=== PATIENT | female | born 1965 | race Caucasian/White ===

== ENCOUNTER 2018-07-08 21:50 | Emergency (ER) | payer MEDICAID ==
[2018-07-08 21:50] VITALS: BMI 20.1
[2018-07-08 22:01] VITALS: BP 119/66; PULSE 91; RESP 16; TEMP 98.8; O2SAT 97
== END 2018-07-09 00:30 | disposition left against medical advice (07) ==
LOC: H.ER 21:50
DX: Z02.89 Encounter for other administrative examinations (principal)